=== PATIENT | male | born 1955 | race Caucasian/White ===

== ENCOUNTER → 2020-10-01 | Outpatient (CLI) | payer MEDICARE, OTHER ==
[2020-10-01 08:03] LABS: HEMOGLOBIN 14.2 gm/dl (14.0-17.5); RED BLOOD COUNT 4.8 M/UL (4.20-5.50); WHITE BLOOD COUNT 8.1 K/UL (4.5-11.0)
[2020-10-01 08:32] LABS: BUN/CREATININE RATIO 14 (0-10)
[2020-10-02 07:11] LABS: VITAMIN D, 25-HYDROXY 70.2 ng/mL (30.0-100.0)
[2020-10-02 11:14] LABS: C-PEPTIDE, SERUM <0.1 ng/mL (1.1-4.4)
== END ==
LOC: LAB 07:23
PROVIDERS: Family Medicine
DX: Z13.220 Encounter for screening for lipoid disorders (principal); E10.9 Type 1 diabetes mellitus without complications; I10 Essential (primary) hypertension; E55.9 Vitamin D deficiency, unspecified
CPT/HCPCS: 36415; 80053; 80061; 82043; 84439; 84443; 84481; 84681; 85027

== ENCOUNTER → 2021-04-01 | Outpatient (CLI) | payer MEDICARE, OTHER | LOC: EXRD 09:08 | DX: Z13.820 Encounter for screening for osteoporosis (principal); M85.88 Other specified disorders of bone density and structure, other site | CPT/HCPCS: 77080 ==

== ENCOUNTER → 2021-08-01 | Outpatient (CLI) | payer MEDICARE, OTHER | LOC: RAD 12:18 | DX: R06.02 Shortness of breath (principal) | CPT/HCPCS: 71046 ==

== ENCOUNTER → 2021-08-28 | Outpatient (CLI) | payer MEDICARE, OTHER | LOC: ECHO 08:26 → NM 10:00 | DX: R06.02 Shortness of breath (principal); I10 Essential (primary) hypertension; E10.9 Type 1 diabetes mellitus without complications; R68.89 Other general symptoms and signs | CPT/HCPCS: ECHO; 78452; 93017; 93306; A9502; J2785 ==

== ENCOUNTER → 2021-09-05 | Outpatient (CLI) | payer MEDICARE, OTHER ==
[2021-09-05 13:21] LABS: HEMOGLOBIN 14.7 gm/dl (14.0-17.5); RED BLOOD COUNT 4.83 M/UL (4.20-5.50)
[2021-09-05 13:46] LABS: BUN/CREATININE RATIO 16 (0-10)
== END ==
LOC: LAB 13:00
PROVIDERS: Internal Medicine Interventional Cardiology
DX: R94.39 Abnormal result of other cardiovascular function study (principal); R00.1 Bradycardia, unspecified; I10 Essential (primary) hypertension; E78.5 Hyperlipidemia, unspecified; E16.2 Hypoglycemia, unspecified; R53.83 Other fatigue; I63.9 Cerebral infarction, unspecified; R06.02 Shortness of breath; E10.9 Type 1 diabetes mellitus without complications
CPT/HCPCS: 36415; 80048; 85025; 85610; 85730; 93005

== ENCOUNTER → 2021-10-07 | Outpatient (CLI) | payer MEDICARE, OTHER ==
[2021-10-07 09:01] LABS: HEMOGLOBIN 13.8 gm/dl (14.0-17.5); RED BLOOD COUNT 4.68 M/UL (4.20-5.50); WHITE BLOOD COUNT 6.7 K/UL (4.5-11.0)
[2021-10-07 09:15] LABS: BUN/CREATININE RATIO 13 (0-10)
== END ==
LOC: LAB 08:10
PROVIDERS: Internal Medicine Interventional Cardiology
DX: Z01.818 Encounter for other preprocedural examination (principal); R94.39 Abnormal result of other cardiovascular function study; R53.83 Other fatigue; E10.9 Type 1 diabetes mellitus without complications; I20.8 Other forms of angina pectoris; I70.0 Atherosclerosis of aorta; E78.00 Pure hypercholesterolemia, unspecified; I21.9 Acute myocardial infarction, unspecified
CPT/HCPCS: 36415; 80048; 85025; 85610; 85652; 85730; 93005

== ENCOUNTER → 2021-10-15 | Outpatient (CLI) | payer MEDICARE, OTHER ==
[~2021-10-15] MED LIST: ASPIRIN CHEWABL81 MG PO; INSULIN LI100 UNIT/1 SC; LEVEMIR FL100 UNIT/1 SQ; LISINOPRIL20 MG PO; LOPRESSOR 25 MG25 MG PO; SIMVASTATIN20 MG PO; TERBINAFINE HC250 MG PO; VITAMIN C100 MG PO; VITAMIN D3125 MCG PO
== END ==
LOC: CATH 06:56
DX: I25.118 Atherosclerotic heart disease of native coronary artery with other forms of angina pectoris (principal); E10.9 Type 1 diabetes mellitus without complications; R53.83 Other fatigue; K21.9 Gastro-esophageal reflux disease without esophagitis; I10 Essential (primary) hypertension; E78.5 Hyperlipidemia, unspecified; I25.2 Old myocardial infarction; Z91.89 Other specified personal risk factors, not elsewhere classified
CPT/HCPCS: 82962; 99152; 99153; J1644; J2250; J2370; J3010; Q9967

== ENCOUNTER → 2021-11-02 | Outpatient (CLI) | payer MEDICARE, OTHER ==
[2021-11-02 07:47] LABS: HEMOGLOBIN 13.4 gm/dl (14.0-17.5); RED BLOOD COUNT 4.63 M/UL (4.20-5.50); WHITE BLOOD COUNT 7.3 K/UL (4.5-11.0)
[2021-11-02 08:14] LABS: BUN/CREATININE RATIO 15 (0-10)
[2021-11-05 11:14] LABS: CREATININE, URINE 92.7 mg/dL (Not Estab.)
== END ==
LOC: LAB 07:04
PROVIDERS: Nurse Practitioner Family
DX: E10.42 Type 1 diabetes mellitus with diabetic polyneuropathy (principal); E10.319 Type 1 diabetes mellitus with unspecified diabetic retinopathy without macular edema; R53.83 Other fatigue; E78.5 Hyperlipidemia, unspecified; E55.9 Vitamin D deficiency, unspecified; E53.8 Deficiency of other specified B group vitamins; Z00.00 Encounter for general adult medical examination without abnormal findings
CPT/HCPCS: 80053; 80061; 81001; 82043; 82570; 82607; 83036; 84156; 84443; 85025